=== PATIENT | female | born 1965 | race Hispanic/Latino ===

== ENCOUNTER 2018-04-05 17:07 | Emergency (ER) | payer BC, OTHER ==
[2018-04-05] MEDS ORDERED: INSULIN HUMULIN R 100 UNIT/ML 3ML ONE ×2 (17:39→18:52)
[2018-04-05] MEDS ORDERED: SODIUM CHLORIDE 0.9% 1000ML 1,000 ML IV ONE (17:39)
[2018-04-05 17:46] LABS: BASOPHILS % (AUTO) 0.6 % (0.0-5.0); EOSINOPHILS % (AUTO) 2.4 % (0.0-8.0); HEMATOCRIT 47.2 % (36-48); LYMPHOCYTES % (AUTO) 33.2 % (21.0-51.0); MEAN CORPUSCULAR HEMOGLOBIN 29.8 pg (27.0-33.0); MEAN CORPUSCULAR HGB CONC 34.8 g/dL (32.0-36.0); MEAN CORPUSCULAR VOLUME 85.7 fL (79-99); MONOCYTES % (AUTO) 5.9 % (3.0-13.0); NEUTROPHILS % (AUTO) 57.9 % (40.0-77.0); PLATELET COUNT (AUTO) 321 K/uL (130-400); RED CELL DISTRIBUTION WIDTH 13.2 % (11.0-15.5); WHITE BLOOD COUNT (AUTO) 9.6 K/uL (4.8-10.8)
[2018-04-05 18:00] LABS: CREATININE 0.8 mg/dL (0.5-1.5); POTASSIUM 3.7 mmol/L (3.5-5.1)
[2018-04-05 18:05] LABS: ALBUMIN 3.8 g/dL (3.5-5.0); TOTAL PROTEIN, SERUM 8.1 g/dL (6.0-8.3)
== END 2018-04-05 19:49 | disposition home or self-care (01) ==
LOC: EDH 17:07
DX: R73.9 Hyperglycemia, unspecified (principal); Z90.49 Acquired absence of other specified parts of digestive tract; Z98.890 Other specified postprocedural states
CPT/HCPCS: 36415; 80053; 82948 ×3; 85025; 96374; 96376; 99284; J1815 ×2; J7030

== ENCOUNTER 2018-04-06 06:00 | Observation (INO) | payer BC ==
[2018-04-06] VITALS (26 sets, daily range): BP systolic 97–142; BP diastolic 57–83
[~2018-04-06] VITALS: Ht 167.6 cm; Wt 85.5 kg
[2018-04-06 06:54] LABS: BASOPHILS % (AUTO) 0.4 % (0.0-5.0); EOSINOPHILS % (AUTO) 2.8 % (0.0-8.0); HEMATOCRIT 44.4 % (36-48); LYMPHOCYTES % (AUTO) 31.6 % (21.0-51.0); MEAN CORPUSCULAR HEMOGLOBIN 29.6 pg (27.0-33.0); MEAN CORPUSCULAR HGB CONC 34.4 g/dL (32.0-36.0); MEAN CORPUSCULAR VOLUME 86.1 fL (79-99); MONOCYTES % (AUTO) 6.7 % (3.0-13.0); NEUTROPHILS % (AUTO) 58.5 % (40.0-77.0); NUCLEATED RED BLOOD CELLS 0.1 % (0.0-0.19); PLATELET COUNT (AUTO) 235 K/uL (130-400); RED BLOOD CELL COUNT(AUTO) 5.15 MIL/uL (4.00-5.50); RED CELL DISTRIBUTION WIDTH 13.3 % (11.0-15.5); WHITE BLOOD COUNT (AUTO) 7.6 K/uL (4.8-10.8)
[2018-04-06 07:18] LABS: CREATININE 0.8 mg/dL (0.5-1.5); POTASSIUM 3.6 mmol/L (3.5-5.1)
[2018-04-06] MEDS ORDERED: SODIUM CHLORIDE 0.9% 1000ML 1,000 ML IV ONE (07:51)
[2018-04-06] MEDS: CEFAZOLIN SODIUM 1 GM VIAL ONE ×2 (07:52→08:10)
[2018-04-06] MEDS ORDERED: LIDOCAINE PF 2% 5ML ABBOJECT ONE (08:04)
[2018-04-06] MEDS ORDERED: MIDAZOLAM HCL 1 MG/ML 2ML VIAL ONE (08:04)
[2018-04-06] MEDS ORDERED: GLYCOPYRROLATE 1 MG/5 ML SYRINGE ONE (08:04)
[2018-04-06] MEDS ORDERED: NEOSTIGMINE 5MG/5ML SYR IV ONE (08:04)
[2018-04-06] MEDS ORDERED: PROPOFOL 10 MG/ML 20ML VIAL IV ONE ×2 (08:04→09:50)
[2018-04-06] MEDS ORDERED: DEXAMETHASONE SOD PHOSPHATE 10MG/ML 1ML VIAL ONE (08:04)
[2018-04-06] MEDS ORDERED: ONDANSETRON HCL 4 MG/2 ML VIAL ONE (08:05)
[2018-04-06] MEDS ORDERED: ROCURONIUM 10MG/1ML SYR 10 MG/ML ML ONE (08:05)
[2018-04-06] MEDS ORDERED: FENTANYL CITRATE PF 50 MCG/1 ML 2ML VIAL ONE (08:05)
[2018-04-06] MEDS ORDERED: MEPERIDINE-PF 50 MG/ML SYG ONE (10:22)
[2018-04-06] MEDS ORDERED: IPRATROPIUM/ALBUTEROL SULFATE 3 ML SOLUTION IH ONE (11:09)
[2018-04-06] MEDS ORDERED: IBUPROFEN 600 MG TABLET PO PRN (13:15)
[2018-04-06] MEDS ORDERED: PROMETHAZINE HCL 25 MG/ML 1ML AMPULE IM PRN (13:15)
[2018-04-06] MEDS ORDERED: BISACODYL 10 MG SUPP.RECT RC PRN (13:15)
[2018-04-06] MEDS ORDERED: ONDANSETRON HCL 4 MG/2 ML VIAL IVP PRN (13:15)
[2018-04-06] MEDS: PROMETHAZINE HCL 25 MG/ML 1ML AMPULE IM PRN ×2 (14:13→20:02)
[2018-04-06] MEDS: MEPERIDINE-PF 75 MG/ML SYG IM PRN ×2 (14:13→20:03)
[2018-04-06] MEDS: SODIUM CHLORIDE 0.9% 1000ML 1,000 ML IV SCH ×2 (14:15→21:29)
[2018-04-06] MEDS: ACETAMINOPHEN-CODEINE 300/30MG TAB PO PRN (15:56)
[2018-04-06] MEDS: INSULIN HUMULIN R 100 UNIT/ML 3ML SQ SCH ×2 (16:58→21:20)
[2018-04-07 00:58] VITALS: BP 89/62
[2018-04-07] MEDS ORDERED: HYDROCODONE/ACETAMINOPHEN 5/325 MG TAB PO PRN (02:00)
[2018-04-07] MEDS: ACETAMINOPHEN-CODEINE 300/30MG TAB PO PRN (02:23)
[2018-04-07 04:59] VITALS: BP 102/62
[2018-04-07] MEDS: SODIUM CHLORIDE 0.9% 1000ML 1,000 ML IV SCH (05:30)
[2018-04-07 05:40] LABS: MEAN CORPUSCULAR HEMOGLOBIN 30.2 pg (27.0-33.0); MEAN CORPUSCULAR HGB CONC 34.8 g/dL (32.0-36.0); MEAN CORPUSCULAR VOLUME 86.8 fL (79-99); PLATELET COUNT (AUTO) 230 K/uL (130-400); RED BLOOD CELL COUNT(AUTO) 4.38 MIL/uL (4.00-5.50); RED CELL DISTRIBUTION WIDTH 12.7 % (11.0-15.5); WHITE BLOOD COUNT (AUTO) 9.1 K/uL (4.8-10.8)
[2018-04-07] MEDS: INSULIN HUMULIN R 100 UNIT/ML 3ML SQ SCH ×4 (06:46→22:21)
[2018-04-07 07:44] VITALS: BP 113/65
[2018-04-07] MEDS: DOCUSATE SODIUM 100 MG CAP PO PRN ×2 (09:14→20:14)
[2018-04-07] MEDS: SIMETHICONE 80 MG TAB.CHEW PO PRN ×2 (09:14→18:41)
[2018-04-07] MEDS: IBUPROFEN 800 MG TAB PO PRN ×2 (09:14→18:41)
[2018-04-07 12:30] VITALS: BP 96/59
[2018-04-07 16:01] VITALS: BP 117/78
[2018-04-07 20:44] VITALS: BP 140/73
[2018-04-08 00:21] VITALS: BP 102/54
[2018-04-08 05:04] VITALS: BP 95/51
[2018-04-08] MEDS: INSULIN HUMULIN R 100 UNIT/ML 3ML SQ SCH ×2 (06:10→12:08)
[2018-04-08 07:51] VITALS: BP 123/75
[2018-04-08] MEDS: DOCUSATE SODIUM 100 MG CAP PO PRN (08:07)
[2018-04-08] MEDS: IBUPROFEN 800 MG TAB PO PRN (08:07)
[2018-04-08] MEDS: SIMETHICONE 80 MG TAB.CHEW PO PRN ×2 (08:07→12:40)
[2018-04-08 11:41] VITALS: BP 112/65
[2018-04-08] MEDS: ACETAMINOPHEN-CODEINE 300/30MG TAB PO PRN (12:41)
== END 2018-04-08 13:45 | disposition home or self-care (01) ==
LOC: DAH 06:00 → DAHIP 06:01 → WSH 12:00
PROVIDERS: ADMIT Obstetrics & Gynecology; ATTEND Obstetrics & Gynecology
DX: B37.3 Candidiasis of vulva and vagina (principal); D25.9 Leiomyoma of uterus, unspecified; N92.1 Excessive and frequent menstruation with irregular cycle; K46.9 Unspecified abdominal hernia without obstruction or gangrene; N85.2 Hypertrophy of uterus; Z82.49 Family history of ischemic heart disease and other diseases of the circulatory system; Z83.3 Family history of diabetes mellitus; Z80.8 Family history of malignant neoplasm of other organs or systems; Z79.899 Other long term (current) drug therapy
CPT/HCPCS: 36415 ×2; 57260; 58262; 80048; 82948 ×10; 85025; 85027; 86850; 86900; 86901; 94640; 96372 ×3; A4344; A4510; A4600; A4606; A4930; G0378 ×56; J0690; J1100; J1815 ×6; J2001; J2175 ×3; J2250; J2405; J2550 ×2; J2704 ×2; J2710; J3010; J3490; J7030 ×5; 88302; 88305; 88307